=== PATIENT | male | born 1990 | race Caucasian/White ===

== ENCOUNTER 2017-01-10 02:12 | Emergency (ER) | payer BC ==
[~2017-01-10] VITALS: Ht 177.8 cm; Wt 71.6 kg
[~2017-01-10 02:12] MED LIST: AMOX875T3 PO; BCTROWC TOP; CEPH500C2 PO; OXYC-57 PO
[2017-01-10 02:16] VITALS: TEMP 36.7; Ht 177.8 cm; Wt 71.6 kg
[2017-01-10] MEDS ORDERED: ONDANSETRON INJ 2 MG/ML 2 ML VIAL IV STA (02:38)
[2017-01-10 02:45] VITALS: O2SAT 97
[2017-01-10] MEDS ORDERED: SODIUM CHLORIDE 0.9% 1000ML 1,000 ML IV ONE (02:45)
[2017-01-10] MEDS ORDERED: OPTIRAY 320 IV PRN (02:45)
[2017-01-10] MEDS ORDERED: CLINDAMYCIN IV 900 MG in DEXTROSE 5% 100ML 100 ML IV ONE (02:45)
[2017-01-10] MEDS ORDERED: MoRPHine SULFATE 4 MG/ML 1 ML CARP\\VIAL IV ONE (02:45)
--- NOTE | 2017-01-10 02:54 | EMERGENCY ROOM VISIT NOTE ---
ED Visit Note First contact with patient: 02:28 Patient seen by me with the physician administrative assistant coordinator to 50 a.m. I agree with the workup. Patient I do not suspect abscess lewd weeks angina at this time. We will evaluate the patient for dental abscess. Patient be started on IV antibiotics. Patient will receive CT imaging. I discussed the workup with the patient physician administrative assistant coordinator at bedside Problem List Surgical Problems: (1) History of appendectomy Status: Chronic (2) History of rhinoplasty Status: Resolved Current/Historical Medications Scheduled Amoxicillin (Amoxil), 875 MG PO BID Allergies Coded Allergies: No Known Allergies (Unverified , 01/10/17) Vital Signs Date Time Temp Pulse Resp B/P (MAP) Pulse Ox O2 Delivery O2 Flow Rate FiO2 01/10/17 02:51 69 01/10/17 02:45 97 Room Air 01/10/17 02:16 36.7 80 20 137/84 97 Room Air Laboratory Results Test 01/10/17 02:38 Departure Information Referrals Bert Velázquez III, M.D. (PCP) Patient Instructions My [facility]
[2017-01-10 03:05] LABS: BASO % 0.2 %; BASO ABS # 0.02 K/uL (0-0.2); COMPLETE YES; EOS % 1.5 %; HEMATOCRIT 46.5 % (42-52); IG% 0.1 %; LYMPH % 28.9 %; LYMPH ABS # 2.64 K/uL (1.2-3.4); MEAN CELL VOLUME 84.1 fL (80-100); MEAN CORPUSCULAR HGB CONC 35.7 g/dl (32-36); MEAN PLATELET VOLUME 8.5 fL (7.4-10.4); MONO % 10.9 %; NEUT % 58.4 %; PLATELET COUNT 276 K/uL (130-400); RED BLOOD COUNT 5.53 M/uL (4.7-6.1); WHITE BLOOD COUNT 9.14 K/uL (4.8-10.8)
[2017-01-10 03:22] LABS: BUN/CREATININE RATIO 13.9 (10-20); CALCIUM 8.8 mg/dl (8.5-10.1); CREATININE 0.99 mg/dl (0.60-1.40); POTASSIUM 3.6 mmol/L (3.5-5.1)
[2017-01-10 03:25] LABS: ALB/GLOB RATIO 1.1 (0.9-2)
[2017-01-10] MEDS ORDERED: ONDANSETRON INJ 2 MG/ML 2 ML VIAL ONE (05:54)
[2017-01-10] MEDS ORDERED: MoRPHine SULFATE 4 MG/ML 1 ML CARP\\VIAL ONE (05:54)
[2017-01-10] MEDS ORDERED: KETOROLAC TROMETHAMINE 30 MG/ML VIAL IV STA (06:43)
--- NOTE | 2017-01-10 07:30 | DIAGNOSTIC IMAGING REPORT ---
CT SCAN OF THE NECK WITH IV CONTRAST CLINICAL HISTORY: Facial pain. Recent dental surgery. COMPARISON STUDY: No priors. TECHNIQUE: Following the IV administration of 92 cc of Optiray 320, CT scan of the soft tissues of the neck was performed from the skull base to the upper chest. Images are reviewed in the axial, sagittal, and coronal planes. IV contrast was administered without complication. A dose lowering technique was utilized adhering to the principles of ALARA. CT DOSE: 592.33 mGy.cm FINDINGS: Soft tissues: There is mild subcutaneous soft tissue edema is seen overlying the left jaw. Deep soft tissue edema is identified in the submental space, left greater than right. There is a left submental fluid collection deep to the mandible seen on image #207. This measures 1.4 x 1.0 cm. Periapical lucencies are seen involving bilateral mandibular molars. Pharynx: There is mild infiltration of the left parapharyngeal fat as well as the anterior pharyngeal soft tissues extending from the submental region. The nasopharynx is Normal in appearance. The pharyngeal airway is widely patent. There is no evidence of mass lesion. The vocal cords are symmetric. The right parapharyngeal fat is well maintained. The prevertebral/retropharyngeal soft tissues are within normal limits. The epiglottis is normal. Lymphadenopathy: There are and is typical in appearance for abscess. Mildly enlarged Left cervical lymph nodes. A carotid body node on the left measures up to 2.1 cm in length Thyroid: Normal in size and attenuation. Salivary glands: The parotid and submandibular glands are within normal limits. Brain parenchyma: The visualized brain parenchyma at the skull base is normal in appearance. Vascular structures: The internal jugular veins and the carotid arteries are widely patent bilaterally. Skeletal structures: Imaged portions of the calvarium at the skull base are within normal limits. The cervical spine appears intact. 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 Orbits: The bony orbits are intact. Orbital contents are normal in appearance. Sinuses and mastoids: The visualized paranasal sinuses are clear. The mastoid air cells are well pneumatized. Lung apices: Visualized apical lung parenchyma is clear. IMPRESSION: 1. There is significant inflammatory change involving the deep submental soft tissues, which also extends into the anterior pharyngeal soft tissues. There is also mild infiltration of the left parapharyngeal fat. 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 There is also evidence of superficial cellulitis overlying the left mandible. 2. There is a 1.4 x 1.0 cm rim-enhancing fluid collection deep to the left mandibular body typical appearance for abscess. 3. The airways widely patent. 4. Mildly enlarged left cervical lymph nodes are likely on a reactive basis. 5. Periapical lucencies are seen involving bilateral mandibular molars. Electronically signed by: Celestino Ulrich M.D. 01/10/2017 7:29 AM Dictated Date/Time: 01/10/2017 7:21 AM
[2017-01-10 08:40] VITALS: BP 113/70; PULSE 50; O2SAT 99
--- NOTE | 2017-01-10 08:41 | EMERGENCY ROOM VISIT NOTE ---
ED Visit Note This patient's case was signed out to me by Dallin Hollins PA-C at the end of his shift. The patient had a root canal performed in [place] on Monday to his left lower posterior molar. Yesterday he started to develop more pain and swelling underneath the left side of his time in the left side of his neck. He called his dentist who made an appointment for today at 2:30. Last night he decided to come to the emergency room for evaluation. He denies any difficulty opening his mouth or any airway compromise. Overnight MORELIA had spoke with the [facility] about the patient and stated that he would be willing to admit the patient if oral surgery could be consult the if needed. I spoke with Dr. Calles at 8:30 this morning to inform him of the CAT scan report which stated there was signs representing Franky angina although the patient could open his mouth without difficulty and they also noted in the report of the CT that airway was widely patent. He stated that it is reasonable to have the patient follow-up with his dentist today for follow-up. The patient had received clindamycin overnight IV for the infection. CT SCAN OF THE NECK WITH IV CONTRAST CLINICAL HISTORY: Facial pain. Recent dental surgery. COMPARISON STUDY: No priors. TECHNIQUE: Following the IV administration of 92 cc of Optiray 320, CT scan of the soft tissues of the neck was performed from the skull base to the upper chest. Images are reviewed in the axial, sagittal, and coronal planes. IV contrast was administered without complication. A dose lowering technique was utilized adhering to the principles of ALARA. CT DOSE: 592.33 mGy.cm FINDINGS: Soft tissues: There is mild subcutaneous soft tissue edema is seen overlying the left jaw. Deep soft tissue edema is identified in the submental space, left greater than right. There is a left submental fluid collection deep to the mandible seen on image #207. This measures 1.4 x 1.0 cm. Periapical lucencies are seen involving bilateral mandibular molars. Pharynx: There is mild infiltration of the left parapharyngeal fat as well as the anterior pharyngeal soft tissues extending from the submental region. The nasopharynx is Normal in appearance. The pharyngeal airway is widely patent. There is no evidence of mass lesion. The vocal cords are symmetric. The right parapharyngeal fat is well maintained. The prevertebral/retropharyngeal soft tissues are within normal limits. The epiglottis is normal. Lymphadenopathy: There are and is typical in appearance for abscess. Mildly enlarged Left cervical lymph nodes. A carotid body node on the left measures up to 2.1 cm in length Thyroid: Normal in size and attenuation. Salivary glands: The parotid and submandibular glands are within normal limits. Brain parenchyma: The visualized brain parenchyma at the skull base is normal in appearance. Vascular structures: The internal jugular veins and the carotid arteries are widely patent bilaterally. Skeletal structures: Imaged portions of the calvarium at the skull base are within normal limits. The cervical spine appears intact. 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 Orbits: The bony orbits are intact. Orbital contents are normal in appearance. Sinuses and mastoids: The visualized paranasal sinuses are clear. The mastoid air cells are well pneumatized. Lung apices: Visualized apical lung parenchyma is clear. IMPRESSION: 1. There is significant inflammatory change involving the deep submental soft tissues, which also extends into the anterior pharyngeal soft tissues. There is also mild infiltration of the left parapharyngeal fat. 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 There is also evidence of superficial cellulitis overlying the left mandible. 2. There is a 1.4 x 1.0 cm rim-enhancing fluid collection deep to the left mandibular body typical appearance for abscess. 3. The airways widely patent. 4. Mildly enlarged left cervical lymph nodes are likely on a reactive basis. 5. Periapical lucencies are seen involving bilateral mandibular molars. Electronically signed by: Celestino Ulrich M.D. 01/10/2017 7:29 AM Dictated Date/Time: 01/10/2017 7:21 AM I independently evaluated the patient. The patient had some firm swelling underneath the left side of the tongue. No pharyngeal swelling or erythema. She was informed of the treatment plan and was in agreement. The patient was discharged home in stable condition. DIAGNOSIS: Left submental abscess TREATMENT PLAN: Keep scheduled appointment today with her oral surgeon at 2:30 PM.
--- NOTE | 2017-01-10 22:11 | EMERGENCY ROOM VISIT NOTE ---
History First contact with patient: :28 Chief Complaint: DENTAL PAIN Stated Complaint: JAW PAIN S/P ROOT CANAL LAST WEEK History of Present Illness The patient is a 26 year old male who presents to the Emergency Room with complaints of persistent dental and neck pain ongoing for the past 3-4 days. The patient evidently had a root canal procedure performed on a left lower molar 6 days ago. He was started on amoxicillin 7 days ago, but continues to have worsening discomfort. He has not had fever or chills. He is able to eat, drink, and swallow. He is reporting some pain underneath his tongue on the left. He is not diabetic and considers himself usually healthy. Review of Systems More than 10 systems were reviewed and otherwise negative with the exception of history of present illness. Past Medical/Surgical History Surgical Problems: (1) History of appendectomy (2) History of rhinoplasty Family History Cancer Heart disease Hypertension Social History Smoking Status: Never Smoker Alcohol Use: occasionally Marital Status: in relationship Housing Status: lives alone Occupation Status: employed Current/Historical Medications Scheduled Amoxicillin (Amoxil), 875 MG PO BID Physical Exam Vital Signs Date Time Temp Pulse Resp B/P (MAP) Pulse Ox O2 Delivery O2 Flow Rate FiO2 01/10/17 08:40 50 20 113/70 99 Room Air 01/10/17 06:57 57 16 115/64 96 Room Air 01/10/17 06:05 58 01/10/17 05:00 57 18 111/69 97 Room Air 01/10/17 03:20 81 18 128/69 97 Room Air 01/10/17 02:51 69 01/10/17 02:45 97 Room Air 01/10/17 02:16 36.7 80 20 137/84 97 Room Air Physical Exam VITALS: Vitals are noted on the nurse's note and reviewed by myself. Vital signs stable. GENERAL: Well-developed, well-nourished, white male, who is in no acute distress and resting comfortably. Patient is cooperative with the examination. HEAD: Normocephalic atraumatic. EARS: External ear normal. External auditory canals clear, tympanic membranes pearly moreno without erythema or effusion bilaterally. EYES: Pupils equal round and reactive to light and accommodation. Conjunctivae without injection, sclerae without icterus. Extraocular movements intact. NOSE: Patent, turbinates without inflammation or discharge. MOUTH: Mucous membranes moist. Tonsils are not enlarged. Pharynx without erythema, blood, or exudate. Uvula midline. Airway patent. Tenderness and swelling appreciated to the left side of the oral floor underneath the tongue NECK: Supple without nuchal rigidity. Left anterior lymphadenopathy appreciated HEART: Regular rate and rhythm without murmurs gallops or rubs. LUNGS: Clear to auscultation bilaterally without wheezes, rales or rhonchi. No retractions or accessory muscle use. Medical Decision & Procedures ER Provider Diagnostic Interpretation: CT SCAN OF THE NECK WITH IV CONTRAST CLINICAL HISTORY: Facial pain. Recent dental surgery. COMPARISON STUDY: No priors. TECHNIQUE: Following the IV administration of 92 cc of Optiray 320, CT scan of the soft tissues of the neck was performed from the skull base to the upper chest. Images are reviewed in the axial, sagittal, and coronal planes. IV contrast was administered without complication. A dose lowering technique was utilized adhering to the principles of ALARA. CT DOSE: 592.33 mGy.cm FINDINGS: Soft tissues: There is mild subcutaneous soft tissue edema is seen overlying the left jaw. Deep soft tissue edema is identified in the submental space, left greater than right. There is a left submental fluid collection deep to the mandible seen on image #207. This measures 1.4 x 1.0 cm. Periapical lucencies are seen involving bilateral mandibular molars. Pharynx: There is mild infiltration of the left parapharyngeal fat as well as the anterior pharyngeal soft tissues extending from the submental region. The nasopharynx is Normal in appearance. The pharyngeal airway is widely patent. There is no evidence of mass lesion. The vocal cords are symmetric. The right parapharyngeal fat is well maintained. The prevertebral/retropharyngeal soft tissues are within normal limits. The epiglottis is normal. Lymphadenopathy: There are and is typical in appearance for abscess. Mildly enlarged Left cervical lymph nodes. A carotid body node on the left measures up to 2.1 cm in length Thyroid: Normal in size and attenuation. Salivary glands: The parotid and submandibular glands are within normal limits. Brain parenchyma: The visualized brain parenchyma at the skull base is normal in appearance. Vascular structures: The internal jugular veins and the carotid arteries are widely patent bilaterally. Skeletal structures: Imaged portions of the calvarium at the skull base are within normal limits. The cervical spine appears intact. 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 Orbits: The bony orbits are intact. Orbital contents are normal in appearance. Sinuses and mastoids: The visualized paranasal sinuses are clear. The mastoid air cells are well pneumatized. Lung apices: Visualized apical lung parenchyma is clear. IMPRESSION: 1. There is significant inflammatory change involving the deep submental soft tissues, which also extends into the anterior pharyngeal soft tissues. There is also mild infiltration of the left parapharyngeal fat. 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 There is also evidence of superficial cellulitis overlying the left mandible. 2. There is a 1.4 x 1.0 cm rim-enhancing fluid collection deep to the left mandibular body typical appearance for abscess. 3. The airways widely patent. 4. Mildly enlarged left cervical lymph nodes are likely on a reactive basis. 5. Periapical lucencies are seen involving bilateral mandibular molars. Laboratory Results 01/10/17 02:53 Red Blood Count 5.53, Mean Corpuscular Volume 84.1, Mean Corpuscular Hemoglobin 30.0, Mean Corpuscular Hemoglobin Concent 35.7, Mean Platelet Volume 8.5, Neutrophils (%) (Auto) 58.4, Lymphocytes (%) (Auto) 28.9, Monocytes (%) (Auto) 10.9, Eosinophils (%) (Auto) 1.5, Basophils (%) (Auto) 0.2, Neutrophils # (Auto ) 5.33, Lymphocytes # (Auto) 2.64, Monocytes # (Auto) 1.00, Eosinophils # (Auto ) 0.14, Basophils # (Auto) 0.02 01/10/17 02:53 Test 01/10/17 02:53 01/10/17 03:05 White Blood Count 9.14 K/uL (4.8-10.8) Red Blood Count 5.53 M/uL (4.7-6.1) Hemoglobin 16.6 g/dL (14.0-18.0) Hematocrit 46.5 % (42-52) Mean Corpuscular Volume 84.1 fL (80-100) Mean Corpuscular Hemoglobin 30.0 pg (25-34) Mean Corpuscular Hemoglobin Concent 35.7 g/dl (32-36) Platelet Count 276 K/uL (130-400) Mean Platelet Volume 8.5 fL (7.4-10.4) Neutrophils (%) (Auto) 58.4 % Lymphocytes (%) (Auto) 28.9 % Monocytes (%) (Auto) 10.9 % Eosinophils (%) (Auto) 1.5 % Basophils (%) (Auto) 0.2 % Neutrophils # (Auto) 5.33 K/uL (1.4-6.5) Lymphocytes # (Auto) 2.64 K/uL (1.2-3.4) Monocytes # (Auto) 1.00 K/uL (0.11-0.59) Eosinophils # (Auto) 0.14 K/uL (0-0.5) Basophils # (Auto) 0.02 K/uL (0-0.2) RDW Standard Deviation 37.0 fL (36.4-46.3) RDW Coefficient of Variation 12.1 % (11.5-14.5) Immature Granulocyte % (Auto) 0.1 % Immature Granulocyte # (Auto) 0.01 K/uL (0.00-0.02) Anion Gap 3.0 mmol/L (3-11) Est Creatinine Clear Calc Drug Dose 112.5 ml/min Estimated GFR () 119.6 Estimated GFR (Non- 103.2 BUN/Creatinine Ratio 13.9 (10-20) Calcium Level 8.8 mg/dl (8.5-10.1) Total Bilirubin 0.6 mg/dl (0.2-1) Aspartate Amino Transf (AST/SGOT) 49 U/L (15-37) Alanine Aminotransferase (ALT/SGPT) 71 U/L (12-78) Alkaline Phosphatase 71 U/L (45-117) Total Protein 8.0 gm/dl (6.4-8.2) Albumin 4.1 gm/dl (3.4-5.0) Globulin 3.9 gm/dl (2.5-4.0) Albumin/Globulin Ratio 1.1 (0.9-2) Bedside Lactic Acid Venous 0.52 mmol/L (0.90-1.70) Medications Administered Medications (Trade) Dose Ordered Sig/Qi Route Start Time Stop Time Status Last Admin Dose Admin Clindamycin Phosphate 900 mg/ Dextrose 106 ml @ 100 mls/hr ONE ONCE IV 01/10/17 02:45 01/10/17 03:48 DC 01/10/17 04:06 100 MLS/HR Morphine Sulfate (MoRPHine SULFATE INJ) 4 mg NOW ONCE IV 01/10/17 02:45 01/10/17 02:46 DC 01/10/17 05:57 4 MG Ondansetron HCl (Zofran Inj) 4 mg NOW STAT IV 01/10/17 02:38 01/10/17 02:43 DC 01/10/17 05:55 4 MG Sodium Chloride 1,000 ml @ 999 mls/hr Q1H1M ONCE IV 01/10/17 02:45 01/10/17 03:45 DC 01/10/17 02:45 999 MLS/HR Ketorolac Tromethamine (Toradol Inj) 30 mg NOW STAT IV 01/10/17 06:43 01/10/17 06:45 DC 01/10/17 06:57 30 MG ED Course Physical exam and history were performed. Nursing notes, EMR, and Medication List were personally reviewed. Patient appears to have neck and mouth pain with swelling after dental procedure last week. On examination the patient is afebrile and appears well, however he does have palpable tenderness and swelling underneath his tongue. IV access was established and labs were obtained. The patient was given 900 mg IV clindamycin. Blood cultures were gathered. CT scan was ordered. The case was discussed with my attending physician, Dr. Saeed, who also evaluated the patient and remained involved in care and decision making. The patient's blood work is as above and was reviewed. He does not have a significantly elevated white blood cell count, gross anemia, bandemia, or significant electrolyte imbalance. Lactic acid is negative. Blood cultures are pending. The patient's CT scan is as above and was discussed at length with the patient. The patient was able to offer additional history, stating that he does have an appointment scheduled with his oral surgeon for 2:30 p.m. today, roughly 8 hours from now. Currently we will not have oral maxillofacial surgery specialty service available for call until 8 AM, roughly 2 hours from now. The patient was given multiple options of care including admission to the hospital for continued IV antibiotics, getting a consult opinion from our local OMFS specialist, versus keeping his appointment later today. The patient indicated that he would like to speak to his surgeon when their office in [place] opens at 8am before making a decision. The patient remained in stable condition until the time of shift change. The patient has received IV antibiotics and his airway is patent. I discussed the case with Sidra Neal PA-C, who will assume care at this time. We are awaiting specialty opinion for determining appropriate disposition for the patient. Please see Ms. Neal dictation for further patient course, plan, and disposition. The chart was completed utilizing [employer] Voice Recognition Software. Grammatical errors, random word insertions, pronoun errors, and incomplete sentences are an occasional consequence of this system due to software limitations, ambient noise, and hardware issues. Any formal questions or concerns about the content, text, or information contained within the body of this dictation should be directly addressed to the provider for clarification. . Medical Decision Differential diagnosis: Etiologies such as Franky's, cellulitis, abscess, MRSA infection, DVT, necrotizing fasciitis, dermatitis, drug eruption, as well as others were entertained.. Impression Primary Impression: Submental abscess Departure Information Dispostion Home / Self-Care Condition [employer] HOME CARE DOCUMENTATION FORM, IMPORTANT VISIT INFORMATION Patient Instructions My [facility] Additional Instructions Keep scheduled appointment today with her oral surgeon at 2:30 PM.
== END 2017-01-10 08:55 | disposition home or self-care (01) ==
LOC: C.EDB 02:13 → C.EDA 08:55
DX: K12.2 Cellulitis and abscess of mouth (principal)

== ENCOUNTER 2017-02-02 02:35 | Emergency (ER) | payer BC ==
[~2017-02-02 02:35] MED LIST changes: -BCTROWC TOP; -CEPH500C2 PO; -OXYC-57 PO
[2017-02-02] MEDS ORDERED: KETOROLAC TROMETHAMINE 30 MG/ML VIAL ONE (03:10)
[2017-02-02 03:43] LABS: BASO % 0.3 %; BASO ABS # 0.02 K/uL (0-0.2); EOS % 1.7 %; EOS ABS # 0.12 K/uL (0-0.5); HEMATOCRIT 44.6 % (42-52); HEMOGLOBIN 15.8 g/dL (14.0-18.0); IG# 0.01 K/uL (0.00-0.02); LYMPH % 44.7 %; LYMPH ABS # 3.22 K/uL (1.2-3.4); MEAN CORPUSCULAR HEMOGLOBIN 29.8 pg (25-34); MEAN CORPUSCULAR HGB CONC 35.4 g/dl (32-36); MEAN PLATELET VOLUME 8.7 fL (7.4-10.4); MONO % 9.4 %; MONO ABS # 0.68 K/uL (0.11-0.59); NEUT % 43.8 %; NEUT ABS # 3.15 K/uL (1.4-6.5); PLATELET COUNT 236 K/uL (130-400); RED CELL DISTRIBUTION WIDTH CV 12.5 % (11.5-14.5); RED CELL DISTRIBUTION WIDTH SD 37.8 fL (36.4-46.3)
[2017-02-02 03:57] LABS: ALBUMIN 4.2 gm/dl (3.4-5.0); ALT/SGPT 67 U/L (12-78); AST/SGOT 30 U/L (15-37); BLOOD UREA NITROGEN 12 mg/dl (7-18); CALCIUM 8.4 mg/dl (8.5-10.1); CARBON DIOXIDE 28 mmol/L (21-32); CREATININE 1.11 mg/dl (0.60-1.40); GLUCOSE 108 mg/dl (70-99); LIPASE 277 U/L (73-393); POTASSIUM 3.4 mmol/L (3.5-5.1); SODIUM 139 mmol/L (136-145)
[2017-02-02 04:00] LABS: ALKALINE PHOSPHATASE 69 U/L (45-117); TOTAL PROTEIN 7.8 gm/dl (6.4-8.2)
--- NOTE | 2017-02-02 04:29 | EMERGENCY ROOM VISIT NOTE ---
History Report prepared by Tayler: Raffi Domínguez Under the Supervision of: Dr. Sherrill Alejo D.O. First contact with patient: 03:29 Chief Complaint: FLANK PAIN Stated Complaint: PAIN LEFT SIDE/ STOMACH History of Present Illness The patient is a 26 year old male who presents to the Emergency Room with complaints of persistent left sided flank pain that began several weeks ago. He rates his pain a 6/10 in severity. He states that his pain worsened significantly this morning while he was sleeping and describes it as a pulsation. Over these past few weeks, the patient has been experiencing left sided flank and left sided back pain. He has also had associated chills throughout this time. He describes this pain as digesting food or his cartilage in his ribs is loose. Yesterday, he received a CT scan at [facility] and worked out at the gym afterward. He then started to experience his LUQ abdominal pain. He spoke with his mom who is a nurse who thought that he may have a complication with his spleen, so he presented to the hospital tonight after his pain worsened. He did not take anything for his pain. He denies any fevers, falls, injury, or trauma. Source of History: patient Onset: several weeks ago Position: other (Left flank) Symptom Intensity: 6/10 Quality: other (pulsation) Timing: other (persistent) Associated Symptoms: + chills, + abdominal pain (LUQ), + back pain (Left sided), No fevers Review of Systems See HPI for pertinent positives & negatives. A total of 10 systems reviewed and were otherwise negative. Past Medical & Surgical Surgical Problems: (1) History of appendectomy (2) History of rhinoplasty Family History Cancer Heart disease Hypertension Social History Smoking Status: Never Smoker Alcohol Use: occasionally Marital Status: in relationship Housing Status: lives alone Occupation Status: employed Current/Historical Medications No Active Prescriptions or Reported Meds Allergies Coded Allergies: No Known Allergies (Unverified , 02/02/17) Physical Exam Vital Signs Date Time Temp Pulse Resp B/P (MAP) Pulse Ox O2 Delivery O2 Flow Rate FiO2 02/02/17 04:30 61 18 142/74 97 Physical Exam HEENT: Head - normocephalic and atraumatic Pupils are equal, round, and reactive to light. Extraocular eye muscles are intact, and sclera are anicteric. Nose - moist nasal mucosa without discharge. Mouth - moist buccal mucosa. Oropharynx is nonerythematous and there is no tonsillar exudate or edema noted. Neck: Supple; no JVD, nuchal rigidity, cervical lymphadenopathy. Heart: Regular rate and rhythm. There is a normal S1 and S2 with no murmurs, clicks, or gallops appreciated. Lungs: Clear to auscultation bilaterally with no wheezes, rales, or rhonchi. Abdomen: Soft, pain with palpation of the LUQ left 12th rib and left flank, nondistended, with good bowel sounds. There are no palpable pulsatile masses or hepatosplenomegaly. There is no guarding, rigidity, or rebound noted. Extremities: No evidence of cyanosis, clubbing, or edema. There are easily palpable peripheral pulses. Skin: warm and dry with good turgor and no rashes. Medical Decision & Procedures Laboratory Results 02/02/17 03:34 Red Blood Count 5.31, Mean Corpuscular Volume 84.0, Mean Corpuscular Hemoglobin 29.8, Mean Corpuscular Hemoglobin Concent 35.4, Mean Platelet Volume 8.7, Neutrophils (%) (Auto) 43.8, Lymphocytes (%) (Auto) 44.7, Monocytes (%) (Auto) 9.4, Eosinophils (%) (Auto) 1.7, Basophils (%) (Auto) 0.3, Neutrophils # (Auto) 3.15, Lymphocytes # (Auto) 3.22, Monocytes # (Auto) 0.68, Eosinophils # (Auto) 0.12, Basophils # (Auto) 0.02 02/02/17 03:34 Test 02/02/17 03:34 White Blood Count 7.20 K/uL (4.8-10.8) Red Blood Count 5.31 M/uL (4.7-6.1) Hemoglobin 15.8 g/dL (14.0-18.0) Hematocrit 44.6 % (42-52) Mean Corpuscular Volume 84.0 fL (80-100) Mean Corpuscular Hemoglobin 29.8 pg (25-34) Mean Corpuscular Hemoglobin Concent 35.4 g/dl (32-36) Platelet Count 236 K/uL (130-400) Mean Platelet Volume 8.7 fL (7.4-10.4) Neutrophils (%) (Auto) 43.8 % Lymphocytes (%) (Auto) 44.7 % Monocytes (%) (Auto) 9.4 % Eosinophils (%) (Auto) 1.7 % Basophils (%) (Auto) 0.3 % Neutrophils # (Auto) 3.15 K/uL (1.4-6.5) Lymphocytes # (Auto) 3.22 K/uL (1.2-3.4) Monocytes # (Auto) 0.68 K/uL (0.11-0.59) Eosinophils # (Auto) 0.12 K/uL (0-0.5) Basophils # (Auto) 0.02 K/uL (0-0.2) RDW Standard Deviation 37.8 fL (36.4-46.3) RDW Coefficient of Variation 12.5 % (11.5-14.5) Immature Granulocyte % (Auto) 0.1 % Immature Granulocyte # (Auto) 0.01 K/uL (0.00-0.02) Anion Gap 5.0 mmol/L (3-11) Estimated GFR () 104.2 Estimated GFR (Non- 89.9 BUN/Creatinine Ratio 11.2 (10-20) Calcium Level 8.4 mg/dl (8.5-10.1) Total Bilirubin 0.4 mg/dl (0.2-1) Direct Bilirubin < 0.1 mg/dl (0-0.2) Aspartate Amino Transf (AST/SGOT) 30 U/L (15-37) Alanine Aminotransferase (ALT/SGPT) 67 U/L (12-78) Alkaline Phosphatase 69 U/L (45-117) Total Protein 7.8 gm/dl (6.4-8.2) Albumin 4.2 gm/dl (3.4-5.0) Lipase 277 U/L (73-393) Laboratory results per my review. Procedure IV Toradol ED Course 0329: Past medical records reviewed. The patient was evaluated in room A3. A complete history and physical exam was performed. An IV lock was initiated and labs were drawn as above. The patient was given 30 mg of IV Toradol with no relief of his symptoms. 0351: We are still awaiting the patient's radiology report from [facility]. ( The patient had a CT scan of the chest performed at [facility] earlier today. He had not received a report as of yet.) 0412: We were able to get the reading from [facility]. Specifically, the lower chest and upper abdomen were marked to be unremarkable. 0430: Upon reevaluation, the patient is resting. I discussed findings and results with him. He verbalized agreement of the treatment plan. He was discharged home. Medical Decision The patient is a 26 year old male who presents to the ED with left flank pain. Differential diagnosis includes splenic rupture, pneumonia, rib fracture, pyelonephritis, and kidney stone. Laboratory Results: No leukocytosis, stable H&H, normal lipase and LFTs, glucose 108, normal renal function. This is a 26-year-old male patient presents to the emergency department with left upper quadrant abdominal pain that radiates through to his left flank and left back. It has been ongoing for the past 2 or 3 weeks and got suddenly worse today. Fortunately, the patient had a CT scan of the chest performed earlier today. We were able to obtain the result of the study and was unremarkable. I also looked at the images myself and noted that the spleen was of normal size and no obvious active bleeding. the patient will use ibuprofen. He was encouraged to avoid strenuous activity for a while and to follow up with PCP. Also, I suggested the patient not press on his floating ribs on the left or manipulate it in any way because he may be causing more pain. Medication Reconcilliation Current Medication List: was personally reviewed by me Blood Pressure Screening Patient's blood pressure: Elevated blood pressure Blood pressure disposition: Elevated BP felt to be situational Impression Primary Impression: Left upper quadrant abdominal pain of unknown etiology Scribe Attestation The scribe's documentation has been prepared under my direction and personally reviewed by me in its entirety. I confirm that the note above accurately reflects all work, treatment, procedures, and medical decision making performed by me. Departure Information Dispostion Home / Self-Care Prescriptions No Active Prescriptions or Reported Meds Referrals Bert Velázquez III, M.D. (PCP) Forms HOME CARE DOCUMENTATION FORM, IMPORTANT VISIT INFORMATION Patient Instructions My [facility] Additional Instructions Rest. Motrin or tylenol for pain Follow up with pcp for continued symptoms.
[2017-02-02 04:30] VITALS: BP 142/74; PULSE 61; O2SAT 97
== END 2017-02-02 04:30 | disposition home or self-care (01) ==
LOC: C.ED 02:59 → C.EDA 04:30
DX: R10.12 Left upper quadrant pain (principal); Z98.890 Other specified postprocedural states; Z80.9 Family history of malignant neoplasm, unspecified; Z82.49 Family history of ischemic heart disease and other diseases of the circulatory system

== ENCOUNTER 2017-05-16 08:43 | Emergency (ER) | payer BC ==
[2017-05-16 08:44] VITALS: TEMP 36.8; Ht 177.8 cm
[2017-05-16 08:48] VITALS: O2SAT 99
[2017-05-16] MEDS ORDERED: OMEG10007 PO (09:04)
[2017-05-16] MEDS ORDERED: MULT-506 PO (09:04)
[2017-05-16] MEDS ORDERED: VTMB12100 PO (09:04)
[2017-05-16] MEDS ORDERED: SODIUM CHLORIDE 0.9% 1000ML 1,000 ML IV STA (09:05)
[2017-05-16 09:24] LABS: BASO % 0.3 %; BASO ABS # 0.02 K/uL (0-0.2); EOS % 1.3 %; HEMATOCRIT 45.7 % (42-52); HEMOGLOBIN 16.3 g/dL (14.0-18.0); IG# 0.01 K/uL (0.00-0.02); LYMPH ABS # 3.05 K/uL (1.2-3.4); MEAN CELL VOLUME 86.1 fL (80-100); MEAN CORPUSCULAR HEMOGLOBIN 30.7 pg (25-34); MEAN CORPUSCULAR HGB CONC 35.7 g/dl (32-36); MEAN PLATELET VOLUME 8.9 fL (7.4-10.4); MONO % 7.9 %; MONO ABS # 0.62 K/uL (0.11-0.59); NEUT % 51.4 %; NEUT ABS # 4.02 K/uL (1.4-6.5); PLATELET COUNT 259 K/uL (130-400); RED CELL DISTRIBUTION WIDTH CV 12.9 % (11.5-14.5); RED CELL DISTRIBUTION WIDTH SD 40.8 fL (36.4-46.3); WHITE BLOOD COUNT 7.82 K/uL (4.8-10.8)
[2017-05-16 09:35] LABS: ALBUMIN 4.2 gm/dl (3.4-5.0); ALT/SGPT 60 U/L (12-78); BLOOD UREA NITROGEN 12 mg/dl (7-18); CALCIUM 8.8 mg/dl (8.5-10.1); CARBON DIOXIDE 28 mmol/L (21-32); CREATININE 1.08 mg/dl (0.60-1.40); GLUCOSE 98 mg/dl (70-99); LIPASE 147 U/L (73-393); POTASSIUM 3.6 mmol/L (3.5-5.1); SODIUM 139 mmol/L (136-145)
[2017-05-16 09:38] LABS: ALKALINE PHOSPHATASE 88 U/L (45-117); AST/SGOT 28 U/L (15-37); TOTAL PROTEIN 7.5 gm/dl (6.4-8.2)
--- NOTE | 2017-05-16 09:39 | DIAGNOSTIC IMAGING REPORT ---
CHEST ONE VIEW PORTABLE CLINICAL HISTORY: Chest pain. COMPARISON STUDY: Chest radiograph and chest CT January 10, 2015. FINDINGS: Lung volumes are normal. There is no pneumothorax or pleural effusion. Lungs are clear. Pulmonary vascularity is normal. There is borderline enlargement of the cardiac silhouette. IMPRESSION: 1. No acute cardiopulmonary findings. 2. Borderline enlargement of the cardiac silhouette, accentuated on this AP exam. Electronically signed by: Ivan Jackson M.D. 05/16/2017 9:38 AM Dictated Date/Time: 05/16/2017 9:37 AM
[2017-05-16] MEDS ORDERED: OPTIRAY 320 IV PRN (09:45)
[2017-05-16 09:48] VITALS: O2SAT 100
[2017-05-16 10:00] VITALS: BP 139/66
--- NOTE | 2017-05-16 10:03 | DIAGNOSTIC IMAGING REPORT ---
(CHEST FOR PE) ANGIO WITH CLINICAL HISTORY: 27 years-old Male presenting with ^Palpitations, lightheadedness, extensive travel and elevated. TECHNIQUE: Multidetector CT angiography of the chest was performed after administration of intravenous contrast. 3-D volumetric and/or maximum intensity projection (MIP) images were subsequently reconstructed for review. IV contrast: 94 mL of Optiray 320. A dose lowering technique was used consistent with the principles of ALARA (as low as reasonably achievable). COMPARISON: 01/10/2015. CT DOSE (mGy.cm): The estimated cumulative dose is 407.30 mGy.cm. FINDINGS: Protection Consultant topogram: Unremarkable. Pulmonary vasculature: The study is adequate for assessment of the pulmonary vascular tree. No filling defect within the pulmonary arteries to suggest embolus. Main pulmonary artery is not enlarged. No flattening of the interventricular septum. No intracardiac filling defect. No reflux of contrast into the hepatic veins. Remaining chest: On soft tissue windows, normal thyroid and thoracic inlet. No axillary, supraclavicular, hilar, or mediastinal lymphadenopathy. Normal aorta. Normal heart size. No pericardial or pleural effusion. Upper abdomen normal. On lung windows, minimal dependent changes likely atelectasis. Solid polygonal fissural 4 mm nodule in the right middle lobe (series 4 image 136). Airways patent. On bone windows, normal osseous structures. IMPRESSION: 1. No evidence of pulmonary embolus. No acute intrathoracic pathology. 2. Solid 4 mm fissural nodule in the right middle lobe likely represents unencapsulated pulmonary lymphoid tissue. Aden Society criteria do not apply to patients less than 35 years of age. Electronically signed by: Cornell Garcia M.D. 05/16/2017 10:02 AM Dictated Date/Time: 05/16/2017 9:58 AM
[2017-05-16 12:15] VITALS: PULSE 72
--- NOTE | 2017-05-16 16:31 | EMERGENCY ROOM VISIT NOTE ---
ED Visit Note First contact with patient: 08:49 Chief Complaint: My heartbeat has been irregular. History of Present Illness: Mr. Carlson is a 27-year-old male who ambulates into the ED reports over the last 2 days he has been having sensations of heart beat irregularity, sensations of slowing heart rate and fast heart rate. The symptoms have been intermittent. He has not identified any aggravating or alleviating factors related to these symptoms. He has not taken any medication for these symptoms prior to arrival at the hospital. Associated with his symptoms he reports intermittently he has been feeling lightheaded and intermittently shortness of breath. He denies dawna chest pain but does report when he takes a deep breath he has a pain in the area of the left scapula. He also reports that 2 days before the onset of his symptoms he was doing a lot of traveling including long car rides and flights in commercial aircraft. He denies fevers, chills, sweats, skin eruptions, skin color changes, dizziness , visual changes, hearing changes, upper respiratory tract symptoms, orthopnea, dependent edema, previous clots, claudication, cramping, abdominal pain, nausea/ vomiting. Review of Systems: As noted above in history of present illness. All body systems were reviewed and found to be negative as noted above. Past Medical History: Unspecified stomach disorder, status post unspecified nasal surgery and appendectomy. Current Medications: Multiple vitamins, fish omega-3. Allergies to Medications: Patient denies. Social History: Patient is currently employed; he lives by himself and feels safe in his home environment; he denies tobacco use and admits to alcohol use. Physical Examination: Vital Signs: Date Time Temp Pulse Resp B/P (MAP) Pulse Ox O2 Delivery O2 Flow Rate FiO2 05/16/17 12:15 72 19 05/16/17 12:10 59 10 05/16/17 12:05 67 17 05/16/17 12:00 83 6 05/16/17 11:55 64 12 05/16/17 11:50 56 15 05/16/17 11:45 63 13 05/16/17 11:40 82 4 05/16/17 11:35 76 22 05/16/17 11:30 55 1 05/16/17 11:25 48 2 05/16/17 11:20 56 13 05/16/17 11:15 64 0 05/16/17 11:10 50 0 05/16/17 11:05 53 5 05/16/17 11:00 61 10 05/16/17 10:55 50 12 05/16/17 10:50 48 13 05/16/17 10:45 48 14 05/16/17 10:40 52 16 05/16/17 10:35 47 14 05/16/17 10:30 52 11 05/16/17 10:25 48 14 05/16/17 10:20 49 13 05/16/17 10:15 54 14 05/16/17 10:00 139/66 05/16/17 09:48 53 13 100 05/16/17 09:43 59 20 99 05/16/17 09:38 57 19 98 05/16/17 09:33 55 10 97 05/16/17 09:30 143/68 05/16/17 09:28 64 17 05/16/17 09:25 150/87 05/16/17 09:24 135/72 05/16/17 09:24 58 135/72 96 Room Air 84 133/69 60 150/87 05/16/17 09:23 55 19 98 05/16/17 09:18 63 8 98 05/16/17 09:13 57 11 97 05/16/17 09:08 57 20 05/16/17 09:03 66 15 99 05/16/17 09:00 127/59 05/16/17 08:58 56 12 97 05/16/17 08:55 61 05/16/17 08:50 96 Room Air 05/16/17 08:48 99 Room Air 05/16/17 08:48 131/68 05/16/17 08:44 36.8 68 20 133/63 99 Room Air GENERAL: 27-year-old male in mild distress due to symptoms, nontoxic-appearing, afebrile and hemodynamically stable. NEUROLOGICAL: Awake, alert and oriented to person, place and time. Answering questions appropriately and following commands. Normal gait. Good hand eye coordination. Cranial nerves II through XII grossly intact. SKIN: Warm, dry and pink. No soft tissue eruptions or trauma noted. HEENT: Atraumatic and normocephalic. PERRLA. EOMI. Sclera white and conjunctiva pink. No drainage from naris. Oral cavity moist and pink. Pharynx is nonerythematous or edematous. Speech normal. No carotid bruits. Trachea midline. No jugular venous distention. BACK: No tenderness over the bony spine. No CVA tenderness. THORAX: Lungs sounds are clear to auscultation and equal bilaterally with symmetrical chest wall. No wheezing, rales or rhonchi. No crepitus, tenderness , subcutaneous air or deformities noted. HEART: Regular rate and rhythm. No gallops, rubs or murmurs are appreciated. PMI is not displaced. No lifts, heaves or thrills. ABDOMEN: Flat, soft and nontender. Positive bowel sounds in all quadrants. No guarding, rigidity or organomegaly. EXTREMITIES: Moves all extremities well on command and with purpose. All distal neurovascular statuses are intact and equal bilaterally. No calf tenderness or cords. ED Course: Patient is assessed as noted above. Patient's medication list was reviewed. Laboratory Testing: Test 05/16/17 08:50 05/16/17 09:17 05/16/17 10:10 Range/Units White Blood Count 7.82 4.8-10.8 K/uL Red Blood Count 5.31 4.7-6.1 M/uL Hemoglobin 16.3 14.0-18.0 g/dL Hematocrit 45.7 42-52 % Mean Corpuscular Volume 86.1 80-100 fL Mean Corpuscular Hemoglobin 30.7 25-34 pg Mean Corpuscular Hemoglobin Concent 35.7 32-36 g/dl Platelet Count 259 130-400 K/uL Mean Platelet Volume 8.9 7.4-10.4 fL Neutrophils (%) (Auto) 51.4 % Lymphocytes (%) (Auto) 39.0 % Monocytes (%) (Auto) 7.9 % Eosinophils (%) (Auto) 1.3 % Basophils (%) (Auto) 0.3 % Neutrophils # (Auto) 4.02 1.4-6.5 K/uL Lymphocytes # (Auto) 3.05 1.2-3.4 K/uL Monocytes # (Auto) 0.62 0.11-0.59 K/uL Eosinophils # (Auto) 0.10 0-0.5 K/uL Basophils # (Auto) 0.02 0-0.2 K/uL RDW Standard Deviation 40.8 36.4-46.3 fL RDW Coefficient of Variation 12.9 11.5-14.5 % Immature Granulocyte % (Auto) 0.1 % Immature Granulocyte # (Auto) 0.01 0.00-0.02 K/uL Sodium Level 139 136-145 mmol/L Potassium Level 3.6 3.5-5.1 mmol/L Chloride Level 104 98-107 mmol/L Carbon Dioxide Level 28 21-32 mmol/L Anion Gap 7.0 3-11 mmol/L Blood Urea Nitrogen 12 7-18 mg/dl Creatinine 1.08 0.60-1.40 mg/dl Estimated GFR () 106.9 Estimated GFR (Non- 92.3 BUN/Creatinine Ratio 10.8 10-20 Random Glucose 98 70-99 mg/dl Calcium Level 8.8 8.5-10.1 mg/dl Total Bilirubin 1.1 0.2-1 mg/dl Direct Bilirubin 0.2 0-0.2 mg/dl Aspartate Amino Transf (AST/SGOT) 28 15-37 U/L Alanine Aminotransferase (ALT/SGPT) 60 12-78 U/L Alkaline Phosphatase 88 45-117 U/L Total Protein 7.5 6.4-8.2 gm/dl Albumin 4.2 3.4-5.0 gm/dl Lipase 147 73-393 U/L Thyroid Stimulating Hormone (TSH) 5.360 0.300-4.500 uIu/ml Free Thyroxine 0.99 0.80-1.60 ng/dl Free Triiodothyronine 3.72 2.30-4.20 pg/ml Bedside D-Dimer > 450 0-450 ng/mlFEU Bedside Troponin I < 0.030 0-0.045 ng/ml Urine Color YELLOW Urine Appearance CLEAR CLEAR Urine pH 7.5 4.5-7.5 Urine Specific [place] 1.017 1.000-1.030 Urine Protein NEG NEG Urine Glucose (UA) NEG NEG Urine Ketones NEG NEG Urine Occult Blood NEG NEG Urine Nitrite NEG NEG Urine Bilirubin NEG NEG Urine Urobilinogen NEG NEG Urine Leukocyte Esterase NEG NEG EKG: Was read by myself and shows normal sinus rhythm with ventricular rate of 64 bpm. There is a sinus arrhythmia present. Normal access. No acute ST changes indicating ischemia, injury or infarction. This was compared to previous and no acute changes were noted. Chest X-Ray: Was read by myself and the radiologist showing borderline enlargement of the heart silhouette. No infiltrates, effusions or pneumothorax. Normal bony anatomy. Chest CTA: Was reviewed by myself and read by the radiologist showing no evidence of pulmonary emboli's or acute intrathoracic pathology. Solid 4 mm fissural nodule in the right middle lobe likely representing unencapsulated pulmonary lymphoid tissue. Patient was hydrated with normal saline. Patient was on continued monitoring engineer and at before discharge I did review his strips with the exception of a sinus arrhythmia with a rate ranging from 58- 98 bpm there was no ectopy. Patient was educated about today's findings and instructed on his treatment plan ; he verbalizes understanding and agreement with this plan. Clinical Impression: Palpitations. Decision-Making: Initially my differential diagnosis I considered arrhythmia of many causes, electrolyte abnormality, pulmonary embolism, acute coronary syndrome, orthostatic hypotension, and other causes. Disposition: Patient discharged home in stable condition; prior to departure he was reassessed and subjectively reported he was feeling the same. Plan: Patient was encouraged to stay well-hydrated with increased clear fluids and avoid stimulants including caffeine, tobacco and alcohol. Patient was encouraged to call his family physician for follow-up care and reevaluation of his TSH and possible referral for Holter monitoring. Patient was encouraged return the ED for worsening symptoms, chest pain, shortness of breath, fevers or any new/concerning symptoms.
== END 2017-05-16 12:21 | disposition home or self-care (01) ==
LOC: C.EDB 08:44 → C.EDA 12:21
DX: R00.2 Palpitations (principal)